=== PATIENT | male | born 1955 | race Caucasian/White ===

== ENCOUNTER 2019-11-08 14:59 | Emergency (ER) | payer OTHER ==
[~2019-11-08] VITALS: Ht 172.7 cm; Wt 83.0 kg
[2019-11-08 16:00] LABS: BASOPHILS ABSOLUTE AUTO 0.06 K/mm3 (0.00-0.23); BASOPHILS PERCENT AUTO 1 % (0-2); EOSINOPHILS ABSOLUTE AUTO 0.06 K/mm3 (0.00-0.68); EOSINOPHILS PERCENT AUTO 1 % (0-6); Hematocrit 42.5 % (37.0-53.0); Hemoglobin 14.8 g/dL (13.5-17.5); IMMATURE GRAN ABSOLUTE AUTO 0.03 K/mm3 (0.00-0.10); IMMATURE GRAN PERCENT AUTO 0 % (0-1); LYMPHOCYTES ABSOLUTE AUTO 1.36 K/mm3 (0.84-5.20); LYMPHOCYTES PERCENT AUTO 14 % (21-46); MONOCYTES ABSOLUTE AUTO 0.64 K/mm3 (0.16-1.47); MONOCYTES PERCENT AUTO 6 % (4-13); Mean Corpuscular HGB 32.8 pg (26.0-34.0); Mean Corpuscular HGB Conc 34.8 g/dL (31.5-36.5); Mean Corpuscular Volume 94 fL (80-100); Mean Platelet Volume 9.3 fL (9.1-12.4); NEUTROPHILS ABSOLUTE AUTO 7.86 K/mm3 (1.96-9.15); NEUTROPHILS PERCENT AUTO 79 % (41-73); Platelet Count 363 K/mm3 (150-400); RDW Coefficient Variation 12.2 % (11.7-14.2); RDW Standard Deviation 42.7 fL (35.1-46.3); Red Blood Cell Count 4.51 M/mm3 (4.30-5.90); White Blood Cell Count 10.01 K/mm3 (4.00-11.30)
[2019-11-08 16:05] LABS: Alanine Aminotransfer (ALT/SGP 24 U/L (12-78); Albumin, Blood 3.7 g/dL (3.4-5.0); Albumin/Globulin Ratio 1.1 (0.8-1.8); Alk Phos 59 U/L (50-136); Anion Gap 8 mmol/L (6-16); Aspartate Aminotrans (AST/SGOT 20 U/L (12-37); Bilirubin, Total 0.7 mg/dL (0.1-1.0); Blood Urea Nitrogen 15 mg/dL (8-24); Bun/Creatinine Ratio 15.5 (12.0-20.0); CO2, Blood 24 mmol/L (21-32); Calcium, Blood 8.9 mg/dL (8.5-10.1); Chloride, Blood 105 mmol/L (98-108); Creatinine, Blood 0.97 mg/dL (0.60-1.20); Globulin, Blood 3.3 g/dL (2.2-4.0); Glomerular Filtration Rate >60 (60-); Glucose, Blood 84 mg/dL (70-99); Sodium, Blood 137 mmol/L (136-145); Troponin I <0.015 ng/mL (0.000-0.040)
[2019-11-08] MEDS ORDERED: Aspirin EC81 MG PO (17:53)
== END 2019-11-08 18:02 | disposition home or self-care (01) ==
LOC: ER 14:59
PROVIDERS: Physician Assistant
DX: R07.89 Other chest pain (principal); F17.200 Nicotine dependence, unspecified, uncomplicated
CPT/HCPCS: 71046; 80053; 84484; 85025; 93005; 93010; 99285-25

== ENCOUNTER 2020-02-02 08:10 | Day surgery (SDC) | payer OTHER ==
[~2020-02-02 08:10] MED LIST: Aspirin EC81 MG PO
[2020-02-02 09:00] LABS: Creatinine (POC) 0.9 mg/dL (0.8-1.3)
--- NOTE | 2020-02-02 09:29 | NUR ---
DISCHARGE SUMMARY PT A&OX4, VSS, LEFT UNIT WITH ALL PERSONAL POSSESSIONS INCLUDING DC INSTRUCTIONS. IV DC'D. Patient up to Ambulate independently. Gait steady. Discharge instructions reviewed with patient. Patient verbalizes understanding. Copy given to patient to take home.
== END 2020-02-02 23:02 | disposition home or self-care (01) ==
LOC: CT 08:10 → ORD 08:10 → CT 09:00 → ORD 23:02
PROVIDERS: Internal Medicine Interventional Cardiology
DX: I25.119 Atherosclerotic heart disease of native coronary artery with unspecified angina pectoris (principal); I49.3 Ventricular premature depolarization; K21.9 Gastro-esophageal reflux disease without esophagitis; R03.0 Elevated blood-pressure reading, without diagnosis of hypertension; Z79.82 Long term (current) use of aspirin; Z79.899 Other long term (current) drug therapy; F17.210 Nicotine dependence, cigarettes, uncomplicated
CPT/HCPCS: 75571; 82565

== ENCOUNTER 2021-05-15 21:42 | Observation (INO) | payer SELFPAY ==
[~2021-05-15] VITALS: Ht 172.7 cm; Wt 82.4 kg
[2021-05-15] MEDS ORDERED: ATOR40TA PO (22:04)
[2021-05-15] MEDS ORDERED: METOPROLOL SUCC25 MG PO (22:04)
[2021-05-15 22:17] LABS: BASOPHILS ABSOLUTE AUTO 0.03 K/mm3 (0.00-0.23); BASOPHILS PERCENT AUTO 1 % (0-2); EOSINOPHILS ABSOLUTE AUTO 0.27 K/mm3 (0.00-0.68); EOSINOPHILS PERCENT AUTO 4 % (0-6); Hematocrit 42.3 % (37.0-53.0); Hemoglobin 14.8 g/dL (13.5-17.5); IMMATURE GRAN ABSOLUTE AUTO 0.01 K/mm3 (0.00-0.10); IMMATURE GRAN PERCENT AUTO 0 % (0-1); LYMPHOCYTES ABSOLUTE AUTO 2.21 K/mm3 (0.84-5.20); LYMPHOCYTES PERCENT AUTO 36 % (21-46); MONOCYTES ABSOLUTE AUTO 0.59 K/mm3 (0.16-1.47); MONOCYTES PERCENT AUTO 10 % (4-13); Mean Corpuscular HGB 32.6 pg (26.0-34.0); Mean Corpuscular Volume 93 fL (80-100); Mean Platelet Volume 8.5 fL (9.1-12.4); NEUTROPHILS ABSOLUTE AUTO 3.11 K/mm3 (1.96-9.15); NEUTROPHILS PERCENT AUTO 50 % (41-73); Platelet Count 317 K/mm3 (150-400); RDW Coefficient Variation 13.1 % (11.7-14.2); RDW Standard Deviation 44.9 fL (35.1-46.3); Red Blood Cell Count 4.54 M/mm3 (4.30-5.90); White Blood Cell Count 6.22 K/mm3 (4.00-11.30)
[2021-05-15 22:37] LABS: Alanine Aminotransfer (ALT/SGP 42 U/L (12-78); Albumin, Blood 3.6 g/dL (3.4-5.0); Albumin/Globulin Ratio 1.1 (0.8-1.8); Alk Phos 65 U/L (50-136); Anion Gap 6 mmol/L (6-16); Aspartate Aminotrans (AST/SGOT 28 U/L (12-37); Bilirubin, Total 0.5 mg/dL (0.1-1.0); Blood Urea Nitrogen 16 mg/dL (8-24); CO2, Blood 28 mmol/L (21-32); Calcium, Blood 9.2 mg/dL (8.5-10.1); Chloride, Blood 106 mmol/L (98-108); Creatinine, Blood 0.84 mg/dL (0.60-1.20); Globulin, Blood 3.4 g/dL (2.2-4.0); Glomerular Filtration Rate >60 (60-); Glucose, Blood 103 mg/dL (70-99); Sodium, Blood 140 mmol/L (136-145)
[2021-05-15 23:22] LABS: International Normalized Ratio 0.97; Prothrombin Time Results 10.2 Sec (9.7-11.5)
--- NOTE | 2021-05-16 05:13 | NUR ---
Received patient AAOX3, Independent, Breathing at room air, respiration unlabored. He came in with chest pain. Lab ruiz with aPTT- 22.8. Heparin drip start at 15 UNITS/KG/HR @24.6 ML/HR. Patient have no complaint of pain at this time. We are monitoring patient for any acute changes.
--- NOTE | 2021-05-16 16:47 | NUR ---
DAY SHIFT SUMMARY 65 YR OLD MALE PT ADMITTED FOR CHEST PAIN. PT HAS BEEN NPO SINCE START OF SHIFT. HEPARIN DRIP STILL INFUSING 15UNITS/KG/HR (24.6). PT CURRENTLY OUT OF ROOM FOR STRESS TEST WITH NUCLEAR MED DEPT. HAS BEEN AT BEDSIDE THROUGHOUT DAY. PT IS ON TELE WITH SINUS ROX AT 55. CALL LIGHT HAS BEEN IN REACH OF PT WHILE IN THE ROOM, AND HE IS ABLE TO CALL APPROPRIATELY.
--- NOTE | 2021-05-16 17:35 | NUR ---
PT BACK IN ROOM AFTER STRESS TEST. PT STATES HE WAS TOLD THAT IT WAS POSSIBLE HE COULD GO HOME ONCE RESULTS HAVE BEEN REVIEWED.
--- NOTE | 2021-05-17 06:22 | NUR ---
SHIFT SUMMARY Patient was on Heparin drip yesterday that was d/c per day nurse report. However, the ordered was not d/c in the [facility]. Dr. schafer called and we clarified that the order can be D/C. Patient had a stress test done yesterday and he was told that he will be going Home as soon as the Doctor talk to him about the result. No events occur during the night. Patient stable and we will continue to monitor for acute changes.
--- NOTE | 2021-05-17 11:40 | NUR ---
DISCHARGE SUMMARY PATIENT IS ALERT AND ORIENTED X4. PATIENT IS IND IN ROOM. VITAL SIGNS REVIEWED. PATIENT HAD NO ACUTE EVENTS THIS SHIFT. PATIENT WAS DISCHARGED WITHOUT INCIDENT. DISCHARGED WITH TO PATIENTS VEHICLE.
== END 2021-05-17 11:56 | disposition home or self-care (01) ==
LOC: ER 21:42 → MEDS 21:43
PROVIDERS: Emergency Medicine; Physician Assistant; ADMIT Internal Medicine
DX: I20.0 Unstable angina (principal); R06.2 Wheezing; F17.210 Nicotine dependence, cigarettes, uncomplicated; Z79.82 Long term (current) use of aspirin
CPT/HCPCS: 36415; 71045; 78452; 80053; 84484; 85025; 85520; 85610; 85730; 93005; 93010; 93017; 93306; 94762; A9270; A9500; J0706; J1644; J2785; J7040